=== PATIENT | female | born 1985 | race Two or more races ===

== ENCOUNTER 2017-04-08 00:07 | Inpatient (IN) | payer MEDICAID ==
[2017-04-08 00:46] LABS: APPEARANCE,URINE CLOUDY; BILIRUBIN,URINE NEGATIVE (NEGATIVE); COLOR,URINE YELLOW; GLUCOSE, URINE NEGATIVE (NEGATIVE); KETONES,URINE NEGATIVE (NEGATIVE); LEUKOCYTE ESTERASE,URINE LARGE (NEGATIVE); NITRITE,URINE NEGATIVE (NEGATIVE); PROTEIN,URINE 30 mg/dL (NEGATIVE); URINE SPECIFIC GRAVITY 1.008; UROBILINOGEN,URINE NEGATIVE mg/dL (<2.0)
[2017-04-08 01:02] LABS: URINE AMPHETAMINES SCREEN NEGATIVE; URINE BARBITURATES SCREEN NEGATIVE; URINE BENZODIAZEPINES SCREEN NEGATIVE; URINE COCAINE SCREEN NEGATIVE; URINE MARIJUANA (THC) SCREEN NEGATIVE; URINE METHADONE SCREEN NEGATIVE; URINE PHENCYCLIDINE SCREEN NEGATIVE
[2017-04-08 01:28] LABS: ABSOLUTE BASOPHILS # (AUTO) 0.1 10^3/uL (0.0-0.2); ABSOLUTE EOSINOPHILS # (AUTO) 0.1 10^3/uL (0.0-0.6); ABSOLUTE LYMPHOCYTES (AUTO) 2.5 10^3/uL (0.5-4.7); ABSOLUTE MONOCYTES (AUTO) 1.3 10^3/uL (0.1-1.4); ABSOLUTE NEUT (AUTO) 10.9 10^3/uL (1.7-8.2); BASOPHILS % (AUTO) 0.8 % (0-2); EOSINOPHILS % (AUTO) 0.8 % (0-6); HEMATOCRIT 35.1 % (36.0-47.0); HEMOGLOBIN 11.6 g/dL (12.0-15.5); LYMPHOCYTES % (AUTO) 16.6 % (13-45); MEAN CORPUSCULAR HEMOGLOBIN 28.5 pg (27.0-33.4); MEAN CORPUSCULAR HGB CONC 32.9 g/dL (32.0-36.0); MEAN CORPUSCULAR VOLUME 87 fl (80-97); MONOCYTES % (AUTO) 8.5 % (3-13); PLATELET COUNT 331 10^3/uL (150-450); RED BLOOD COUNT 4.06 10^6/uL (3.72-5.28); RED CELL DISTRIBUTION WIDTH 13.5 % (11.5-14.0); SEGMENTED NEUTROPHILS % (AUTO) 73.3 % (42-78); TOTAL CELLS COUNTED % (AUTO) 100 %; WHITE BLOOD COUNT 14.9 10^3/uL (4.0-10.5)
[2017-04-08] MEDS ORDERED: CEFAZOLIN 2 GM/D5W RTU 0 GM/0 ML RTUPB IV ONE (01:50)
[2017-04-08] MEDS ORDERED: CITRIC ACID/SODIUM CITRATE ORAL SOLN 15 ML UDCUP ONE (01:50)
[2017-04-08] MEDS ORDERED: OXYTOCIN/NORMAL SALINE 20 UNIT/1,000 ML RTUINJ ONE ×2 (02:17→06:53)
[2017-04-08] MEDS ORDERED: LIDOCAINE 1% INJ-PF (10 MG/ML) 30 ML SDV ONE (02:17)
[2017-04-08] MEDS ORDERED: MISOPROSTOL 0.2 MG TABLET ONE (02:17)
[2017-04-08] MEDS ORDERED: EPHEDRINE SULFATE INJ 50 MG/1 ML AMPULE ONE (02:17)
[2017-04-08] MEDS ORDERED: BUPIVACAINE HCL 0.25 % INJ/PF (2.5 MG/1 ML) 30 ML VIAL ONE (02:18)
[2017-04-08] MEDS ORDERED: FENTANYL/BUPIVACAINE/NS/PF 200 MCG/100 ML RTUINJ EPI ONE (02:18)
[2017-04-08 02:41] LABS: CHLAM PCR NOT DETECTED (NOT DETECT); GON PCR NOT DETECTED (NOT DETECT)
[2017-04-08 03:00] LABS: RUBELLA INTERPRETATION POSITIVE
[2017-04-08] MEDS ORDERED: RINGERS SOLUTION,LACTATED 300 ML IV ONE (03:40)
[2017-04-08] MEDS ORDERED: PENICILLIN G POTASSIUM 5,000,000 UNIT in DEXTROSE 5%-WATER 100 ML IV ONE (03:42)
[2017-04-08] MEDS ORDERED: PENICILLIN G-K 5 MILLION UNIT VIAL IV PRN (03:49)
[2017-04-08] MEDS: RINGERS SOLUTION,LACTATED 1,000 ML IV PRN ×3 (03:55→10:42)
--- NOTE | 2017-04-08 04:47 | RADIOLOGY REPORT (SQ) ---
EXAM DESCRIPTION: U/S OB LIMITED CLINICAL HISTORY: 32 years Female, Labor and delivery for presentation. Estimated delivery date of 04/17/2017 by last menstrual period COMPARISON: None. TECHNIQUE: Limited transabdominal third trimester obstetrical ultrasound to evaluate for position. FINDINGS: heart rate of 143 bpm. position is vertex. No other measurements or imaging provided of the fetus. IMPRESSION: Single live intrauterine with heart rate of 143 bpm. Vertex presentation.
[2017-04-08] MEDS ORDERED: PENICILLIN G-K 5 MILLION UNIT VIAL ONE ×2 (05:42→09:58)
[2017-04-08] MEDS ORDERED: PENICILLIN G POTASSIUM 2,500,000 UNIT in DEXTROSE 5%-WATER 50 ML IV SCH (07:42)
[2017-04-08] MEDS ORDERED: LIDOCAINE 2% INJ-PF (20 MG/ML) 10 ML AMPUL ONE (08:20)
[2017-04-08] MEDS ORDERED: MORPHINE SULFATE 10 MG/ML INJ ONE (10:34)
[2017-04-08] MEDS: OXYTOCIN/NORMAL SALINE 20 UNIT/1,000 ML RTUINJ IV PRN ×3 (10:40→10:44)
[2017-04-08] MEDS: PENICILLIN G-K 5 MILLION UNIT VIAL IV SCH ×2 (10:40→13:01)
[2017-04-08] MEDS ORDERED: MAGNESIUM HYDROXIDE SUSP 30 ML UDCUP PO PRN (10:59)
[2017-04-08] MEDS ORDERED: PROMETHAZINE HCL INJ 25 MG/1 ML VIAL IV PRN (10:59)
[2017-04-08] MEDS ORDERED: PSEUDOEPHEDRINE HCL 30 MG TABLET PO PRN (10:59)
[2017-04-08] MEDS ORDERED: ACETAMINOPHEN WITH CODEINE #3 TABLET PO PRN (10:59)
[2017-04-08] MEDS ORDERED: NA PHOS,M-B/NA PHOS,DI-BA (ADULT) 133 ML ENEMA PR PRN (10:59)
[2017-04-08] MEDS ORDERED: MEASLES,MUMPS&RUBELLA VACC/PF 0.5 ML VIAL SUBCUT PRN (10:59)
[2017-04-08] MEDS ORDERED: DIPHENHYDRAMINE HCL 25 MG CAPSULE PO PRN (10:59)
[2017-04-08] MEDS ORDERED: GLYCERIN/WITCH HAZEL LEAF 1 EACH MED..PAD TP PRN (10:59)
[2017-04-08] MEDS ORDERED: PROMETHAZINE HCL 25 MG TABLET PO PRN (10:59)
[2017-04-08] MEDS ORDERED: PROMETHAZINE HCL 25 MG SUPP.RECT PR PRN (10:59)
[2017-04-08] MEDS ORDERED: DIBUCAINE 1% OINTMENT 28 GM TP PRN (10:59)
[2017-04-08] MEDS ORDERED: ACETAMINOPHEN 650 MG SUPP.RECT PR PRN (10:59)
[2017-04-08] MEDS ORDERED: OXYTOCIN/NORMAL SALINE 20 UNIT/1,000 ML RTUINJ IV PRN (10:59)
[2017-04-08] MEDS ORDERED: BENZOCAINE/MENTHOL AEROSOL SPRAY 56 ML TOP PRN (10:59)
[2017-04-08] MEDS ORDERED: DIPH/PERTUSS(ACELL)/TETANUS VAC/PF 0.5 ML SYR (>=10YO) IM PRN (10:59)
--- NOTE | 2017-04-08 11:30 | Warning Signs in Babies ---
VOD Warning Signs Datetime Report Generated by [facility]: 04/08/2017 11:29 VOD#608 -Warning Signs in Babies: Needs to be viewed. (04/08/2017 10:54:PATIENCE Mo)
--- NOTE | 2017-04-08 12:03 | Delivery Summary ---
Del Sum A-C Datetime Report Generated by CPN: 04/08/2017 12:02 DELIVERY PERSONNEL DELIVERY PERSONNEL: [id number] Delivery Doctor:: Lily Ovalle CNM Labor and Delivery Nurse:: PATIENCE Mo Labor and Delivery Nurse:: Jessie Mukherjee RNC Nursery Nurse:: ROHAN Olea/FOOD AND BEVERAGE ORDER CLERK: Yun Woodson, COMMERCIAL OR INSTITUTIONAL CLEANER MATERNAL INFORMATION Delivery Anesthesia: Epidural Medications After Delivery: Pitocin Bolus-Please Comment Estimated Blood Loss (ml): 200 Maternal Complications: None Provider Comments: Pt. progressed to c/c/+2 with urge to push and this provider called into room. Pt. began pushing and with much coaching continued to push during contractions. Poor maternal effort during contractions and pt. stopped pushing with delivery of head, legs on mc hairston position and cork screw attempted for delivery of the shoulders. Pt. began pushing again and shoulders delivered without difficulty.Baby placed on maternal abdomen (Nursery personnel in room for delivery and eval). Vigorous respiratory effort and cry with tactile stimulation. Cord allowed to stop pulsating then clamped x2 and cut by FOB (3vc noted and cord blood obtained). Placenta delivered spontaneously intact, lacerations as stated and hemostatic on repair. Mother and baby remain skin to skin and bonding at this time. LABOR SUMMARY EDC: 04/17/2017 00:00 No. Babies in Womb: 1 Attempted: No Labor Anesthesia: Epidural LABOR INFORMATION Reason for Induction: Not Applicable Onset of Labor: 04/08/2017 00:46 Complete Dilatation: 04/08/2017 10:00 Oxytocin: Augmentation Group B Beta Strep: positive Antibiotics # of Doses: 3 Antibiotics Time of Last Dose: 0213/0602/1000 Name of Antibiotic Given: PCN Steroids Given: None Reason Steroids Not Administered: Not Applicable MEMBRANES Membranes Rupture Method: Spontaneous Rupture of Membranes: 04/08/2017 05:56 Length of Rupture (hr): 4.50 Amniotic Fluid Color: Clear Amniotic Fluid Amount: Moderate STAGES OF LABOR Stage 1 hr: 9 Stage 1 min: 14 Stage 2 hr: 0 Stage 2 min: 26 Stage 3 hr: 0 Stage 3 min: 6 Total Time in Labor hr: 9 Total Time in Labor min: 46 VAGINAL DELIVERY Episiotomy: None Laceration #1: Perineal; Periurethral Laceration Extension #1: First Degree Other Laceration: right labial periurethral tear/midline perineal lac Laceration Repair: Yes Laceration Repair Note: right labial and periurethral tear repaired with 3-0 chromic on an SH in the usual fashion-hemostatic. Superficial MLL repaired with 2-[address] also approximated and hemostatic Sponge Count Correct: N/A Sharps Count Correct: N/A CSECTION DELIVERY Primary Indication: N/A Secondary Indication: N/A CSection Incidence: N/A Labor: N/A Elective: N/A CSection Incision: N/A BABY A INFORMATION Infant Delivery Date/Time: 04/08/2017 10:26 Method of Delivery: Vaginal Born in Route : No : N/A Forceps: N/A Vacuum Extraction: N/A Shoulder Dystocia : Yes SHOULDER DYSTOCIA BABY A Delivery of Head: 04/08/2017 10:26 Time Head to Delivery : 0.0 1st Intervention to Resolve: McRobert's Maneuver 2nd Intervention to Resolve: Brito's Meneuver Verify NO Fundal Pressure: No Fundal Pressure Applied Arm Under Symphisis at Del: Right Shoulder Dystocia Comments: 25 seconds head to body PRESENTATION/POSITION BABY A Presentation: Cephalic Cephalic Presentation: Vertex Vertex Position: Left Occipital Anterior Breech Presentation: N/A PLACENTA INFORMATION BABY A Placenta Delivery Time : 04/08/2017 10:32 Placenta Method of Delivery: Spontaneous Placenta Status: Delivered SCORES BABY A Heart Rate 1 min: >100 bpm Resp Effort 1 min: Good Cry Reflex Irritability 1 min: Cough or Sneeze or Pulls Away Muscle Tone 1 min: Active Motion Color 1 min: Blue/Pale Resuscitation Effort 1 min: Tactile Stimulation SCORE 1 MIN: 8 Heart Rate 5 min: >100 bpm Resp Effort 5 min: Good Cry Reflex Irritability 5 min: Cough or Sneeze or Pulls Away Muscle Tone 5 min: Active Motion Color 5 min: Body Gardiner, Extremities Blue Resuscitation Effort 5 min: Tactile Stimulation SCORE 5 MIN: 9 INFANT INFORMATION BABY A Gestational Age at Delivery: 38.5 Gestational Status: Early Term- 37- 38.6 Weeks Outcome : Liveborn Infant Condition : Stable Sex: Female IDENTIFICATION BABY A Infant Verification Date/Time: 04/08/2017 11:30 ID Band Number: [id number] Mother's Name Verified: Yes Infant RN Verifying Infant: K Ole RNC/D [place] RNC WEIGHT/LENGTH BABY A Infant Birthweight (gm): 3560 Weight (lb): 7 Infant Weight (oz): 14 Infant Length (in): 20.75 Infant Length (cm): 52.71 CORD INFORMATION BABY A No. Cord Vessels: 3 Nuchal Cord : N/A Cord Blood Taken: Yes-For Eval (Mom's Blood Type - or O+) Suction: None ASSESSMENT BABY A Complications: None Physical Findings at Delivery: Caput [place]aneum Infant Respirations: Appears Normal Skin to Skin: Yes Operating Room Surgical Technician/ALS Called : Yes Infant Care By: Leeroy Hayes RN Transferred To: Remains with Mother BABY B INFORMATION : N/A SIGNATURES Assignment: Francia Dc MD Signature: with User ID: [email or web address] : with User ID: [email or web address] : I was personally available for consultation and serving as supervising physician for the P.
--- NOTE | 2017-04-08 12:18 | Admission Physical ---
Datetime Report Generated by CPN: 04/08/2017 12:17 CURRENT ADMISSION Chief Complaint: Uterine Contractions Indication for Induction: Term, Intrauterine ; Active Labor Admit Plan: Admit to Unit ALLERGIES Medication Allergies: No Medication Allergies: No Known Allergies (04/08/2017) Medication Allergies: No Known Allergies (09/06/2015) Latex: No Latex Allergies Food Allergies: n/a Environmental Allergies: n/a OBSTETRICAL HISTORY EDC: 04/17/2017 00:00 : 2 Para: 1 Term: 0 : 1 SAB: 0 IAB: 0 Ectopic: 0 Livin Cesareans: 0 VBACs: 0 Multiple Births: 0 Gestational Diabetes: No Rh Sensitization: No Incompetent Cervix: Yes LORI: No Infertility: No ART Treatment: No Uterine Anomaly: No IUGR: No Hx Previous C/S: No Macrosomia: No Hx Loss/Stillborn: Yes PIH: No Hx : No Placenta Previa/Abruption: No Depression/PP Depression: No PTL/PROM: Yes Post Hemorrhage: No Current Procedures: Ultrasound; [place] Obstetrical History Comments: G1- 2015 22week demise G2- current, 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 Surgery: No Heart Disease: No Hosp/Surgery: Yes Autoimmune Disorder: No Anesthetic Complications: No Kidney Disease: No Abnormal Pap Smear: No Neuro/Epilepsy: No Psychiatric Disorders: No Other Medical Diseases: No Hepatitis/Liver Disease: No Significant Family History: No Varicosities/Phlebitis: No Trauma/Violence : No Thyroid Dysfunction: No Medical History Comments: Appendectomy at age 19 INFECTIOUS HISTORY Gonorrhea: No Genital Herpes: No Chlamydia: No Tuberculosis: No Syphilis: No Hepatitis: No HIV/AIDS Exposure: No Rash or Viral Illness: No HPV: No PHYSICAL EXAM General: Normal HEENT: Normal Neurologic: Normal Thyroid: Normal Heart: Normal Lungs: Normal Breast: Normal Back: Normal Abdomen: Normal Genitourinary Exam: Normal Extremities: Normal DTRs: Normal Pelvic Type: Adequate Vital Signs: Reviewed; Within Normal Limits VAGINAL EXAM Dilatation: 7 Effacement: 80 Station: -2 FETUS A EGA: 38.5 Admit Comment: 32 yo presented at 38 weeks and 5 days complaining of contractions. Monitored with cervical change. care in [place], [facility] per patient. SROM at 0600, 04/08/17. Will admit, wll require augmentation, PCN for unknown GBS status. Expect normal spontaneous vaginal delivery. PLANS FOR LABOR AND DELIVERY Labor and Delivery: None Pain Management: Epidural Feeding Preference: Formula Benefit of Breast Feed Discussed: Yes Circumcision: N/A INFORMED CONSENT Signature: with User ID: [email or web address]
[2017-04-08] MEDS: IBUPROFEN 800 MG TABLET PO SCH ×2 (13:09→21:02)
[2017-04-08] MEDS ORDERED: INFLUENZA ADLT QUAD (36MOS+) 2017-18 VAC 0.5 ML SYR IM PRN (14:48)
[2017-04-08] MEDS: FERROUS SULFATE 325 MG TABLET PO SCH (17:31)
[2017-04-08] MEDS: DOCUSATE SODIUM 100 MG CAPSULE PO SCH (17:31)
[2017-04-08] MEDS: FAMOTIDINE 20 MG TABLET PO SCH (21:03)
[2017-04-08] MEDS: ACETAMINOPHEN WITH CODEINE #3 TABLET PO PRN (23:32)
[2017-04-09] MEDS: ACETAMINOPHEN WITH CODEINE #3 TABLET PO PRN ×3 (03:42→18:34)
[2017-04-09 05:39] LABS: HEPATITIS C VIRUS AB <0.1 s/co ratio (0.0-0.9)
[2017-04-09] MEDS: IBUPROFEN 800 MG TABLET PO SCH ×3 (05:44→21:57)
[2017-04-09 07:16] LABS: HEPATITS B SURFACE ANTIGEN Negative (Negative)
[2017-04-09 07:54] LABS: HEMATOCRIT 30.5 % (36.0-47.0); HEMOGLOBIN 10.1 g/dL (12.0-15.5); MEAN CORPUSCULAR HEMOGLOBIN 29.1 pg (27.0-33.4); MEAN CORPUSCULAR HGB CONC 33.2 g/dL (32.0-36.0); MEAN CORPUSCULAR VOLUME 88 fl (80-97); PLATELET COUNT 304 10^3/uL (150-450); RED BLOOD COUNT 3.48 10^6/uL (3.72-5.28); RED CELL DISTRIBUTION WIDTH 13.3 % (11.5-14.0); WHITE BLOOD COUNT 17.2 10^3/uL (4.0-10.5)
[2017-04-09] MEDS: DOCUSATE SODIUM 100 MG CAPSULE PO SCH ×2 (09:16→17:56)
[2017-04-09] MEDS: PRENATAL VITAMIN W DHA CAPSULE PO SCH (09:16)
[2017-04-09] MEDS: FAMOTIDINE 20 MG TABLET PO SCH ×2 (09:17→21:56)
[2017-04-09] MEDS: SENNOSIDES/DOCUSATE 8.6-50 MG 1 EACH TABLET PO SCH (09:17)
[2017-04-09] MEDS: FERROUS SULFATE 325 MG TABLET PO SCH ×2 (09:17→17:55)
--- NOTE | 2017-04-09 09:34 | PDOC PROGRESS REPORT ---
Subjective-OB Subjective: Post Delivery Day: 32 year old. Denies any needs at this time Doing well, no c/o, family at BS, bottle feeding, encouraged to wear bra Physical Exam (OB) Vital Signs: Temp Pulse Resp BP Pulse Ox 97.9 F 79 16 123/74 100 04/09/17 07:47 04/09/17 07:47 04/09/17 07:47 04/09/17 07:47 04/09/17 07:47 Intake & Output 04/08/17 04/09/17 04/10/17 06:59 06:59 06:59 Weight 86 kg - Lochia Lochia Amount: Scant < 10 ml Lochia Color: Rubra/Red - Abdomen Description: Soft, Round Hernia Present: No Fundal Description: Firm, Midline Fundal Height: u/u - u/2 Objective-Diagnostic Laboratory: 04/09/17 07:02 04/09/17 07:02 WBC 17.2 H RBC 3.48 L Hgb 10.1 L Hct 30.5 L MCV 88 MCH 29.1 MCHC 33.2 RDW 13.3 Plt Count 304 Assessment and Plan(PN) - Assessment and Plan (1) Smoker Is this a current diagnosis for this admission?: Yes (2) GBS (group B Streptococcus carrier), +RV culture, currently Is this a current diagnosis for this admission?: Yes (3) Delivery normal Is this a current diagnosis for this admission?: Yes - Time Spent with Patient Time with patient: Less than 15 minutes Medications reviewed and adjusted accordingly: Yes - Disposition Anticipated Discharge: Home Within: within 24 hours
[2017-04-10] MEDS: ACETAMINOPHEN WITH CODEINE #3 TABLET PO PRN (03:58)
[2017-04-10] MEDS: IBUPROFEN 800 MG TABLET PO SCH (05:21)
[2017-04-10 08:10] VITALS: BP 137/83
[2017-04-10] MEDS: FAMOTIDINE 20 MG TABLET PO SCH (09:40)
[2017-04-10] MEDS: DOCUSATE SODIUM 100 MG CAPSULE PO SCH (09:40)
[2017-04-10] MEDS: FERROUS SULFATE 325 MG TABLET PO SCH (09:40)
[2017-04-10] MEDS: SENNOSIDES/DOCUSATE 8.6-50 MG 1 EACH TABLET PO SCH (09:40)
[2017-04-10] MEDS: PRENATAL VITAMIN W DHA CAPSULE PO SCH (09:40)
--- NOTE | 2017-04-10 10:06 | PDOC DISCHARGE SUMMARY ---
Final Diagnosis Discharge Date: 04/10/17 - Final Diagnosis (1) Delivery normal Is this a current diagnosis for this admission?: Yes Discharge Data - Discharge Medication Prescriptions: Ibuprofen [Motrin 800 mg Tablet] 800 mg PO Q8 #30 tablet Home Medications: No122/Iron/Folic Acid [ Multi Tablet] 1 tab PO DAILY 04/08/17 Acetaminophen with Codeine [Tylenol #3 Tablet] 2 each PO Q4HP PRN #30 tablet Ibuprofen [Motrin 800 mg Tablet] 800 mg PO Q8 #30 tablet 04/10/17 Vit/Dha [ Multi + Dha Capsule] 1 cap PO DAILY capsule Gestational Age: term Reason(s) for Admission: Onset of Labor Admission Note: Pt was admitted in active labor. Procedures: None Intrapartum Procedure(s): Spontaneous Vaginal Delivery Complication(s): Laceration-Labial - Data Baby 1 Female at 1 minute: 8 at 5 minutes: 9 Weight: 3.203 kg Home with Mother: Yes Complications: No - Diagnosis Test Laboratory: Temp Pulse Resp BP Pulse Ox 97.8 F 82 18 137/83 H 98 04/10/17 07:57 04/10/17 07:57 04/10/17 07:57 04/10/17 07:57 04/10/17 07:57 04/08/17 04/08/17 04/09/17 00:21 01:09 07:02 RBC 4.06 3.48 L Hgb 11.6 L 10.1 L Hct 35.1 L 30.5 L Urine Opiates Screen NEGATIVE - Discharge information/Instructions Discharge Activity: Balance Activity w/Rest, Pelvic Rest Discharge Diet: As Tolerated, Regular Disposition: HOME, SELF-CARE Follow up with: [facility] in: 4
== END 2017-04-10 11:48 | disposition home or self-care (01) | DRG 775 ==
LOC: LC 00:07 → LR 02:05 → 2S 12:15
PROVIDERS: ADMIT Obstetrics & Gynecology; ATTEND Obstetrics & Gynecology
PROC: 10E0XZZ Delivery of Products of Conception, External Approach (ICD-10-PCS; principal; 2017-04-08)
PROC: 0UQMXZZ Repair Vulva, External Approach (ICD-10-PCS; 2017-04-08)
PROC: 0HQ9XZZ Repair Perineum Skin, External Approach (ICD-10-PCS; 2017-04-08)
PROC: 4A1HXCZ Monitoring of Products of Conception, Cardiac Rate, External Approach (ICD-10-PCS; 2017-04-08)
DX: O99.824 Streptococcus B carrier state complicating childbirth (principal); O70.0 First degree perineal laceration during delivery; O71.82 Other specified trauma to perineum and vulva; O99.334 Smoking (tobacco) complicating childbirth; F17.210 Nicotine dependence, cigarettes, uncomplicated; Z79.899 Other long term (current) drug therapy; Z3A.38 38 weeks gestation of pregnancy; Z37.0 Single live birth
CPT/HCPCS: 36415; 76815; 80307; 81005; 85025; 85027; 86592; 86701; 86762; 86803; 86804; 86850; 86900; 86901; 87340; 87491; 87591; 88307; 90686; 90715; J0690; J2270; J2540; J2590; J3490

== ENCOUNTER 2018-03-12 23:06 | Emergency (ER) | payer SELFPAY ==
--- NOTE | 2018-03-13 00:01 | ER Document Report ---
ED Psych Disorder / Suicide - General Chief Complaint: Psych Problem Stated Complaint: TOOK 9 TYLENOL 500MG Time Seen by Provider: 03/12/18 23:49 Mode of Arrival: Ambulatory Information source: Patient TRAVEL OUTSIDE OF THE [place] IN LAST 30 DAYS: No - HPI Patient complains to provider of: Suicidal attempt - 33-year-old female without significant past medical history that presents for evaluation of an episode of suicide attempt. She took 9 500 mg Tylenol tablets at 10:00 tonight and attempt to harm herself because she had gotten into a disturbance with her mother. She noted that immediately after taking the medication that she regretted that she did try to induce vomiting at the time and vomited up 3 of the Tylenol tablets. She denies any history of depression in the past previous known mental health problems, she does not take any medications in the REM prescribe anything in the past were diagnosed with any other issues. - Related Data Allergies/Adverse Reactions: No Known Allergies Allergy (Verified 04/08/17 03:38) Past Medical History - General Information source: Patient - Social History Smoking Status: Never Smoker Family History: DM - Past Medical History Cardiac Medical History: Reports: Hx Atrial Fibrillation Renal/ Medical History: Reports: Hx Kidney Stones Psychiatric Medical History: Denies: Hx Depression Past Surgical History: Reports: Hx Appendectomy - Immunizations Immunizations up to date: Yes Hx Diphtheria, Pertussis, Tetanus Vaccination: Yes - unk Review of Systems - Review of Systems -: Yes All other systems reviewed and negative Physical Exam - Vital signs Vitals: Temp Pulse Resp BP Pulse Ox 98 F 70 16 147/95 H 98 03/12/18 23:31 03/12/18 23:31 03/12/18 23:31 03/12/18 23:31 03/12/18 23:31 - General General appearance: Appears well, Alert - HEENT Head: Normocephalic, Atraumatic Eyes: Normal Pupils: PERRL - Respiratory Respiratory status: No respiratory distress Chest status: Nontender Breath sounds: Normal Chest palpation: Normal - Cardiovascular Rhythm: Regular Heart sounds: Normal auscultation Murmur: No - Abdominal Inspection: Normal Distension: No distension Bowel sounds: Normal Tenderness: Nontender Organomegaly: No organomegaly - Back Back: Normal, Nontender - Extremities General upper extremity: Normal inspection, Nontender, Normal color, Normal ROM , Normal temperature General lower extremity: Normal inspection, Nontender, Normal color, Normal ROM , Normal temperature, Normal weight bearing. No: Rosas's sign - Neurological Neuro grossly intact: Yes Cognition: Normal Orientation: AAOx4 Celina Coma Scale Eye Opening: Spontaneous Lyubov Coma Scale Verbal: Oriented Lyubov Coma Scale Motor: Obeys Commands Lyubov Coma Scale Total: 15 Speech: Normal Motor strength normal: LUE, RUE, LLE, RLE Sensory: Normal - Psychological Associated symptoms: Other - Tearful Course - Re-evaluation Re-evalutation: 03/13/18 01:57 33-year-old female that presents after a suicide attempt. She did take Tylenol then was able to vomit up 3 of the 9 tablets. Denies any history of suicidal attempts in the past has been feeling like a bird in the people however and is concerned about suicidal thoughts. We will plan for psychiatric screening laboratory evaluation including a 4-hour Tylenol level. We will plan for this patient undergo evaluation in the morning by her mental health team with appropriate disposition determination with safe follow-up and an appropriate plan. - Vital Signs Vital signs: Temp Pulse Resp BP Pulse Ox 98 F 70 16 147/95 H 98 03/12/18 23:31 03/12/18 23:31 03/12/18 23:31 03/12/18 23:31 03/12/18 23:31 - Laboratory Result Diagrams: 03/13/18 00:15 03/13/18 00:15 Laboratory results interpreted by me: 03/13/18 03/13/18 03/13/18 00:15 00:15 00:15 WBC 11.0 H Calcium 10.6 H Urine Protein 30 H Discharge - Discharge Clinical Impression: Feeling of sadness Suicide attempt by acetaminophen overdose Qualifiers: Encounter type: initial encounter Qualified Code(s): T39.1X2A - Poisoning by 4- Aminophenol derivatives, intentional self-harm, initial encounter Referrals: CHRIS MALHOTRA MD [JOHN REGAN] - Follow up as needed
[2018-03-13 00:33] LABS: ABSOLUTE BASOPHILS # (AUTO) 0.1 10^3/uL (0.0-0.2); ABSOLUTE EOSINOPHILS # (AUTO) 0.3 10^3/uL (0.0-0.6); ABSOLUTE LYMPHOCYTES (AUTO) 4.2 10^3/uL (0.5-4.7); ABSOLUTE MONOCYTES (AUTO) 0.8 10^3/uL (0.1-1.4); ABSOLUTE NEUT (AUTO) 5.4 10^3/uL (1.7-8.2); BASOPHILS % (AUTO) 0.9 % (0-2); EOSINOPHILS % (AUTO) 3.1 % (0-6); HEMATOCRIT 41.9 % (36.0-47.0); HEMOGLOBIN 14.5 g/dL (12.0-15.5); LYMPHOCYTES % (AUTO) 38.6 % (13-45); MEAN CORPUSCULAR HGB CONC 34.6 g/dL (32.0-36.0); MEAN CORPUSCULAR VOLUME 90 fl (80-97); MONOCYTES % (AUTO) 7.8 % (3-13); PLATELET COUNT 364 10^3/uL (150-450); RED BLOOD COUNT 4.68 10^6/uL (3.72-5.28); RED CELL DISTRIBUTION WIDTH 13.1 % (11.5-14.0); SEGMENTED NEUTROPHILS % (AUTO) 49.6 % (42-78); TOTAL CELLS COUNTED % (AUTO) 100 %
[2018-03-13 00:37] LABS: APPEARANCE,URINE CLOUDY; BILIRUBIN,URINE NEGATIVE (NEGATIVE); GLUCOSE, URINE NEGATIVE (NEGATIVE); KETONES,URINE NEGATIVE (NEGATIVE); LEUKOCYTE ESTERASE,URINE NEGATIVE (NEGATIVE); NITRITE,URINE NEGATIVE (NEGATIVE); PROTEIN,URINE 30 mg/dL (NEGATIVE); URINE SPECIFIC GRAVITY 1.034; UROBILINOGEN,URINE NEGATIVE mg/dL (<2.0)
[2018-03-13 00:38] LABS: COLOR,URINE YELLOW
[2018-03-13 00:49] LABS: ALANINE AMINOTRANSFERASE 30 U/L (9-52); ALBUMIN 4.3 g/dL (3.5-5.0); ALKALINE PHOSPHATASE 110 U/L (38-126); ANION GAP 15 (5-19); ASPARTATE AMINO TRANSFERASE 20 U/L (14-36); BILIRUBIN,DIRECT 0.1 mg/dL (0.0-0.4); BILIRUBIN,TOTAL 0.3 mg/dL (0.2-1.3); BLOOD UREA NITROGEN 14 mg/dL (7-20); CALCIUM 10.6 mg/dL (8.4-10.2); CARBON DIOXIDE 24 mmol/L (22-30); CHLORIDE 106 mmol/L (98-107); GLUCOSE 105 mg/dL (75-110); POTASSIUM 3.9 mmol/L (3.6-5.0); SALICYLATE 3.7 mg/dL (2.0-20.0); SODIUM 144.6 mmol/L (137-145); TOTAL PROTEIN 7.6 g/dL (6.3-8.2); URINE AMPHETAMINES SCREEN NEGATIVE; URINE BARBITURATES SCREEN NEGATIVE; URINE BENZODIAZEPINES SCREEN NEGATIVE; URINE COCAINE SCREEN NEGATIVE; URINE MARIJUANA (THC) SCREEN UNCONFIRMED POSITIVE; URINE METHADONE SCREEN NEGATIVE; URINE PHENCYCLIDINE SCREEN NEGATIVE
[2018-03-13 00:50] LABS: ALCOHOL < 10 mg/dL (NONE DETECTED)
--- NOTE | 2018-03-13 07:52 | EKG REPORT ---
SEVERITY:- NORMAL ECG - SINUS RHYTHM SINUS ARRHYTHMIA : Confirmed by: Rigo Keating MD 13-Mar-2018 07:51:39
[2018-03-13 12:45] LABS: ACETAMINOPHEN < 10 ug/mL (10-30); ALANINE AMINOTRANSFERASE 25 U/L (9-52); ALBUMIN 4.3 g/dL (3.5-5.0); ALKALINE PHOSPHATASE 99 U/L (38-126); ANION GAP 13 (5-19); ASPARTATE AMINO TRANSFERASE 19 U/L (14-36); BILIRUBIN,DIRECT 0.2 mg/dL (0.0-0.4); BILIRUBIN,TOTAL 0.5 mg/dL (0.2-1.3); BLOOD UREA NITROGEN 16 mg/dL (7-20); CARBON DIOXIDE 25 mmol/L (22-30); CHLORIDE 107 mmol/L (98-107); GLUCOSE 95 mg/dL (75-110); POTASSIUM 4.1 mmol/L (3.6-5.0); SODIUM 144.9 mmol/L (137-145); TOTAL PROTEIN 7.3 g/dL (6.3-8.2)
--- NOTE | 2018-03-13 12:51 | ER Document Report ---
Doctor's Note Notes: 03/13/18 12:50 Patient hemodynamically stable. She is a 33-year-old woman that presented yesterday after an overdose with Tylenol. The Tylenol level at 2 hours after the ingestion was 15. She has been asymptomatic here. Repeat CMP shows no liver inflammation. Repeat Tylenol level was undetectable. Patient is medically stable for psychiatric transfer. The plan includes transfer to a psychiatric facility.
--- NOTE | 2018-03-13 14:32 | PSYCHOLOGICAL NOTE ---
Psych Note - Psych Note Date seen by psych provider: 03/13/18 Time seen by psych provider: 07:40 Psych Note: Reason for Consult: Intentional overdose Consent Permissions: ,Vesta, at bedside per patient's request 33-year-old female without significant past medical history that presents for evaluation of an episode of suicide attempt. Patient disclosed that she came to [facility] ED because she "took too many pills." She denies ever having this happen before. She reports that in the past she has had thoughts that come and go of "if I was not around anymore but never thought about harming myself." She denies having a mental health diagnosis. She states that she "regretted it instantly" and told her father and . Patient was unable or unwilling to discuss her trigger stating it was "just everything" and reports that she did not want to talk about it. Patient clearly became overwhelmed and tearful when asked about a trigger. Patient is alert and orientated to person, place, time and circumstance. Mood is dysphoric with congruent affect. Patient endorses intentional overdose however reports that immediate remorse. Patient denies homicidal ideation. Delusions are absent behaviors congruent with an intact reality based presentation i.e. organized linear thought process. Thought content is guarded. Eye contact is fair. Conversational speech was soft-spoken however easily understood. Intellectual abilities appear to be within the average range. Attention and concentration are good. Insight, judgment, impulse control is fair. Medication recommendations per [facility]'s contracted psychiatrist Celexa 20mg daily Diagnosis 311 (F32.9) Unspecified Depressive disorder Impression/plan: Patient is recommended for IVC for overnight mental health observation. Patient confirms she intentionally overdosed but immediately regretted it. Patient took steps to ensure she would be alright (ie telling her and father and coming to [facility] ED to be checked out medically). Patient has continued stressors with her mother that will not change; however, patient was able to engage in problem-solving. Patient has never been on medications; medication have been provided. She will be re-evaluated tomorrow with probable discharge in the morning. Dr. Marie was consulted on the care and management of this patient; attending physician is in agreement with recommendations and disposition.
[2018-03-13] MEDS: CITALOPRAM HYDROBROMIDE 20 MG TABLET PO SCH (16:04)
[2018-03-14 06:07] VITALS: BP 125/66
--- NOTE | 2018-03-14 09:08 | PSYCHOLOGICAL NOTE ---
Psych Note - Psych Note Date seen by psych provider: 03/14/18 Time seen by psych provider: 07:45 Psych Note: Reason for Consult: Intentional overdose Consent Permissions: ,Vesta, at bedside per patient's request 33-year-old female without significant past medical history that presents for evaluation of an episode of suicide attempt. Conducted check in with patient Patient confirms plan is still for her to stay with her in-laws. Her spouse reports that both he and the patient work for his parents at the [employer] so it would be only a matter of on the end of the workday her going home with him instead of coming to her parents home. She identifies her mother as her stress is trigger however was unable to move out of the home because she assist in the care of her father. Patient's spouse confirms that he has volunteered to continue going over to the patient's parents home to assist in the care of the father. She confirms she will continue taking medication and seek therapeutic services. Mood is euthymic with congruent affect. Medication recommendations per [facility]'s contracted psychiatrist Celexa 20mg daily Diagnosis 311 (F32.9) Unspecified Depressive disorder Impression/plan: Patient is recommended for rescind of IVC and is cleared from acute psychiatric services. Patient confirms she intentionally overdosed but immediately regretted it. Patient took steps to ensure she would be alright ( ie telling her and father and coming to [facility] ED to be checked out medically). Patient has continued stressors with her mother that will not change ; however, patient was able to engage in problem-solving. Patient started medications and report no concerns. Patient and spouse continue to reports the plan is for the patient to stay with her [id number] while receiving therapeutic services and her spouse will assist with the care of the patient's father. Dr. Marie was consulted on the care and management of this patient; attending physician is in agreement with recommendations and disposition.
--- NOTE | 2018-03-14 10:01 | ER Document Report ---
Doctor's Note Notes: 03/14/18 09:59 Chart reviewed and patient interviewed. Patient is here for having taken an overdose of the small number of Tylenol. Patient is being seen by mental health. Vital signs are all normal. Lab studies show innocuous acetaminophen level of 15. Other labs essentially normal. Patient appears to be medically stable for transfer or discharge. Eva Mendieta MD
[2018-03-14] MEDS: CITALOPRAM HYDROBROMIDE 20 MG TABLET PO SCH (10:38)
== END 2018-03-14 11:15 | disposition home or self-care (01) ==
LOC: ER 23:06
DX: T39.1X2A Poisoning by 4-Aminophenol derivatives, intentional self-harm, initial encounter (principal); F32.9 Major depressive disorder, single episode, unspecified; Y92.009 Unspecified place in unspecified non-institutional (private) residence as the place of occurrence of the external cause
CPT/HCPCS: 36415; 80053; 80307; 81001; 84703; 85025; 93005; 93010; 99285

== ENCOUNTER 2018-12-02 22:04 | Inpatient (IN) | payer MEDICAID ==
[2018-12-02] MEDS ORDERED: PENICILLIN G POTASSIUM 5,000,000 UNIT in DEXTROSE 5%-WATER 100 ML IV ONE (22:37)
[2018-12-02] MEDS ORDERED: RINGERS SOLUTION,LACTATED 1,000 ML IV ONE (22:37)
[2018-12-02] MEDS ORDERED: MISOPROSTOL 0.2 MG TABLET ONE (22:40)
[2018-12-02] MEDS ORDERED: LIDOCAINE 1% INJ-PF (10 MG/ML) 30 ML SDV ONE (22:41)
[2018-12-02] MEDS ORDERED: OXYTOCIN/NORMAL SALINE 20 UNIT/1,000 ML RTUINJ ONE (22:41)
[2018-12-02] MEDS ORDERED: PENICILLIN G-K 5 MILLION UNIT VIAL ONE (22:41)
[2018-12-02 22:51] LABS: APPEARANCE,URINE SLIGHTLY-CLOUDY; BILIRUBIN,URINE NEGATIVE (NEGATIVE); COLOR,URINE YELLOW; GLUCOSE, URINE NEGATIVE (NEGATIVE); KETONES,URINE NEGATIVE (NEGATIVE); LEUKOCYTE ESTERASE,URINE SMALL (NEGATIVE); NITRITE,URINE NEGATIVE (NEGATIVE); PROTEIN,URINE NEGATIVE (NEGATIVE); URINE SPECIFIC GRAVITY 1.005; UROBILINOGEN,URINE NEGATIVE mg/dL (<2.0)
[2018-12-02 23:09] LABS: ABSOLUTE BASOPHILS # (AUTO) 0.1 10^3/uL (0.0-0.2); ABSOLUTE EOSINOPHILS # (AUTO) 0.2 10^3/uL (0.0-0.6); ABSOLUTE LYMPHOCYTES (AUTO) 2.8 10^3/uL (0.5-4.7); ABSOLUTE MONOCYTES (AUTO) 1.3 10^3/uL (0.1-1.4); BASOPHILS % (AUTO) 0.6 % (0-2); EOSINOPHILS % (AUTO) 1.8 % (0-6); HEMATOCRIT 33.6 % (36.0-47.0); HEMOGLOBIN 11.3 g/dL (12.0-15.5); LYMPHOCYTES % (AUTO) 24.7 % (13-45); MEAN CORPUSCULAR HEMOGLOBIN 28.8 pg (27.0-33.4); MEAN CORPUSCULAR HGB CONC 33.6 g/dL (32.0-36.0); MEAN CORPUSCULAR VOLUME 86 fl (80-97); MONOCYTES % (AUTO) 11.1 % (3-13); PLATELET COUNT 289 10^3/uL (150-450); RED BLOOD COUNT 3.92 10^6/uL (3.72-5.28); RED CELL DISTRIBUTION WIDTH 13.7 % (11.5-14.0); SEGMENTED NEUTROPHILS % (AUTO) 61.8 % (42-78); TOTAL CELLS COUNTED % (AUTO) 100 %; WHITE BLOOD COUNT 11.4 10^3/uL (4.0-10.5)
[2018-12-02 23:09] LABS: URINE AMPHETAMINES SCREEN NEGATIVE; URINE BARBITURATES SCREEN NEGATIVE; URINE BENZODIAZEPINES SCREEN NEGATIVE; URINE COCAINE SCREEN NEGATIVE; URINE MARIJUANA (THC) SCREEN NEGATIVE; URINE METHADONE SCREEN NEGATIVE; URINE PHENCYCLIDINE SCREEN NEGATIVE
[2018-12-02] MEDS ORDERED: ONDANSETRON HCL INJ/PF 4 MG/2 ML SDV ONE (23:10)
[2018-12-02] MEDS ORDERED: EPHEDRINE SULFATE INJ 50 MG/1 ML AMPULE ONE (23:16)
[2018-12-02] MEDS ORDERED: BUPIVACAINE HCL 0.25 % INJ/PF (2.5 MG/1 ML) 30 ML VIAL ONE (23:16)
[2018-12-02] MEDS ORDERED: FENTANYL/BUPIVACAINE/NS/PF 300 MCG/150 ML RTUINJ EPI ONE (23:16)
--- NOTE | 2018-12-03 00:17 | Admission Physical ---
Datetime Report Generated by CPN: 12/03/2018 00:17 CURRENT ADMISSION Chief Complaint: Uterine Contractions Indication for Induction: Not Applicable Admit Impression : Term, Intrauterine ; Active Labor; Intact Membranes Admit Plan: Admit to Unit; Initiate Labor Protocol ALLERGIES Medication Allergies: No Medication Allergies: No Known Allergies (04/08/2017) Latex: No Latex Allergies Food Allergies: None Environmental Allergies: None OBSTETRICAL HISTORY EDC: 12/12/2018 00:00 : 3 Para: 2 Term: 1 : 1 SAB: 0 IAB: 0 Ectopic: 0 Livin Cesareans: 0 VBACs: 0 Multiple Births: 0 Gestational Diabetes: No Rh Sensitization: No Incompetent Cervix: Yes LORI: No Infertility: No ART Treatment: No Uterine Anomaly: No IUGR: No Hx Previous C/S: No Macrosomia: No Hx Loss/Stillborn: No PIH: No Hx : No Placenta Previa/Abruption: No Depression/PP Depression: No PTL/PROM: No Post Hemorrhage: No Obstetrical History Comments: G1 - at 21 weeks (2015), IUFD, incompetent cervix G2 - at 38 weeks, cerclage (2016) G3 - Current , cerclage SEE RECORDS Alcohol: No Marijuana : No Cocaine: No Other Illicit Drugs: No Cigarettes: Current Everyday Smoker. 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: No Heart Disease: No Hosp/Surgery: No Autoimmune Disorder: No Anesthetic Complications: No Kidney Disease: No Abnormal Pap Smear: No Neuro/Epilepsy: No Psychiatric Disorders: No Other Medical Diseases: No Hepatitis/Liver Disease: No Significant Family History: No Varicosities/Phlebitis: No Trauma/Violence : No Thyroid Dysfunction: No INFECTIOUS HISTORY Gonorrhea: No Genital Herpes: Yes Chlamydia: No Tuberculosis: No Syphilis: No Hepatitis: No HIV/AIDS Exposure: No Rash or Viral Illness: No HPV: No PHYSICAL EXAM General: Normal HEENT: Normal Neurologic: Normal Thyroid: Deferred Heart: Normal Lungs: Normal Breast: Deferred Back: Normal Abdomen: Normal Genitourinary Exam: Normal Extremities: Normal DTRs: Normal Pelvic Type: Adequate Physical Exam Comments: pelvis proven to 7#14oz. No HSV lesions on exam. Vital Signs: Reviewed VAGINAL EXAM Dilatation: 4 Effacement: 90 Station: -2 Contraction Comments: Q 2-3 MEMBRANES Membranes: Intact FETUS A EGA: 38.4 Monitoring: External US FHR- Baseline: 135 Variability: Moderate 6-25bpm Accelerations: 15X15 Decelerations: None FHR Category: Category I Presentation: Vertex Admit Comment: 24yo at 38+4ega presents with ctx in active labor. c/b cerclage removed a couple of weeks ago. G1 was delivery at 22wks due to incompetent cervix at [facility]. G2 cerclage then term delivery at 38.5ega at [facility]. [facility] patient with each . O pos. Hep C not in records - ordered. She has a h/o genital HSV - no lesions on exam. She reports that she was put on valtrex but hasnt taken it in some time. last outbreak was 3months ago. 1 hr GTT was 122. GBS was done on 11/12 but results are not in records obtained from [facility]. Admit to Labor and delivery anticipate . PLANS FOR LABOR AND DELIVERY Labor and Delivery: None Pain Management: Epidural Feeding Preference: Both Benefit of Breast Feed Discussed: Yes Circumcision: N/A INFORMED CONSENT Informed Consent Obtained: Vaginal Delivery; Risks, Benefits and Alternatives Discussed Signature: with User ID: [email or web address]
[2018-12-03 01:17] LABS: CHLAM PCR NOT DETECTED (NOT DETECT)
[2018-12-03] MEDS ORDERED: BENZOCAINE/MENTHOL AEROSOL SPRAY 56 ML ONE (03:22)
--- NOTE | 2018-12-03 03:33 | Delivery Summary ---
Del Sum A-C Datetime Report Generated by CPN: 12/03/2018 03:32 DELIVERY PERSONNEL DELIVERY PERSONNEL: [id number] Delivery Doctor:: Francia Dc MD Anesthesiologist:: Michel Estrella MD Labor and Delivery Nurse:: Bridgette Pittman RNproduction trainer Nurse:: Ceci Alford RN Singer And Unloader/OVENS SUPERVISOR: Breana Green, ST MATERNAL INFORMATION Delivery Anesthesia: Epidural Medications After Delivery: Pitocin Bolus-Please Comment Estimated Blood Loss (ml): 50 Delivery QBL: 0 Delivery QBL Comment: 50 Maternal Complications: None Provider Comments: VMI delivered in VU presentation. No nuchal cord. Shoulders and body delivered without difficulty. cord doubly clamped and infant to maternal abdomen for NRP. Placenta delivered intact spontaneously. FF at U. No perineal lacerations. Mother and baby stable upon provider leaving the room. LABOR SUMMARY EDC: 12/12/2018 00:00 No. Babies in Womb: 1 Attempted: No Labor Anesthesia: Epidural LABOR INFORMATION Reason for Induction: Not Applicable Onset of Labor: 12/02/2018 21:30 Complete Dilatation: 12/03/2018 02:19 Oxytocin: N/A Group B Beta Strep: Negative Antibiotics # of Doses: 0 Steroids Given: None Reason Steroids Not Administered: Not Applicable MEMBRANES Membranes Rupture Method: Artificial Rupture of Membranes: 12/03/2018 02:02 Length of Rupture (hr): 0.35 Amniotic Fluid Color: Moderate Meconium Amniotic Fluid Amount: Small Amniotic Fluid Odor: Normal STAGES OF LABOR Stage 1 hr: 4 Stage 1 min: 49 Stage 2 hr: 0 Stage 2 min: 4 Stage 3 hr: 0 Stage 3 min: 12 Total Time in Labor hr: 5 Total Time in Labor min: 5 VAGINAL DELIVERY Episiotomy: None Laceration #1: None Laceration Extension #1: N/A Laceration Repair: Not Applicable Sponge Count Correct: Yes Sharps Count Correct: Yes CSECTION DELIVERY CSection Incision: N/A BABY A INFORMATION Delivery Date/Time: 12/03/2018 02:23 Method of Delivery: Vaginal Born in Route : No : N/A Forceps: N/A Vacuum Extraction: N/A Shoulder Dystocia : No PRESENTATION/POSITION BABY A Presentation: Cephalic Cephalic Presentation: Vertex Vertex Position: Left Occipital Anterior Breech Presentation: N/A PLACENTA INFORMATION BABY A Placenta Delivery Time : 12/03/2018 02:35 Placenta Method of Delivery: Spontaneous Placenta Status: Delivered SCORES BABY A Heart Rate 1 min: >100 bpm Resp Effort 1 min: Good Cry Reflex Irritability 1 min: Cough or Sneeze or Pulls Away Muscle Tone 1 min: Active Motion Color 1 min: Blue/Pale Resuscitation Effort 1 min: Tactile Stimulation SCORE 1 MIN: 8 Heart Rate 5 min: >100 bpm Resp Effort 5 min: Good Cry Reflex Irritability 5 min: Cough or Sneeze or Pulls Away Muscle Tone 5 min: Active Motion Color 5 min: Body [place], Extremities Blue Resuscitation Effort 5 min: Tactile Stimulation SCORE 5 MIN: 9 INFORMATION BABY A Gestational Age at Delivery: 38.5 Gestational Status: Early Term- 37- 38.6 Weeks Outcome : Liveborn Infant Condition : Stable Infant Sex: Male IDENTIFICATION BABY A Infant Verification Date/Time: 12/03/2018 02:40 ID Band Number: [id number] Mother's Name Verified: Yes Infant RN Verifying : squinn Additional Verifying Personnel: jacilek RN WEIGHT/LENGTH BABY A Birthweight (gm): 3000 Infant Weight (lb): 6 Weight (oz): 10 Infant Length (in): 19.50 Length (cm): 49.53 CORD INFORMATION BABY A No. Cord Vessels: 3 Nuchal Cord : N/A Cord Blood Taken: Yes-For Eval (Mom's Blood Type - or O+) Infant Suction: None ASSESSMENT BABY A Infant Complications: Multiple Variable Decels; Meconium Physical Findings at Delivery: Within Normal Limits Respirations: Appears Normal Skin to Skin: Yes Skin to Skin Time (min): 40 Licensing Specialist/ALS Called : No Care By: Jamir Alford RN Transferred To: Remains with Mother BABY B INFORMATION : N/A SIGNATURES Signature: with User ID: [email or web address]
[2018-12-03] MEDS ORDERED: ACETAMINOPHEN WITH CODEINE #3 TABLET ONE (05:16)
[2018-12-03] MEDS ORDERED: IBUPROFEN 800 MG TABLET ONE ×3 (06:21→22:18)
[2018-12-03] MEDS ORDERED: OXYTOCIN/NORMAL SALINE 20 UNIT/1,000 ML RTUINJ IV PRN (07:18)
[2018-12-03] MEDS ORDERED: PROMETHAZINE HCL 25 MG SUPP.RECT PR PRN (07:18)
[2018-12-03] MEDS ORDERED: PROMETHAZINE HCL 25 MG TABLET PO PRN (07:18)
[2018-12-03] MEDS ORDERED: ACETAMINOPHEN WITH CODEINE #3 TABLET PO PRN ×2 (07:18)
[2018-12-03] MEDS ORDERED: BENZOCAINE/MENTHOL AEROSOL SPRAY 56 ML TOP PRN (07:18)
[2018-12-03] MEDS ORDERED: MAGNESIUM HYDROXIDE SUSP 30 ML UDCUP PO PRN (07:18)
[2018-12-03] MEDS ORDERED: GLYCERIN/WITCH HAZEL LEAF 1 EACH MED..WIPE TP PRN (07:18)
[2018-12-03] MEDS ORDERED: DIBUCAINE 1% OINTMENT 56 GM TP PRN (07:18)
[2018-12-03] MEDS ORDERED: NA PHOS,M-B/NA PHOS,DI-BA (ADULT) 133 ML ENEMA PR PRN (07:18)
[2018-12-03] MEDS ORDERED: DIPH/PERTUSS(ACELL)/TETANUS VAC/PF 0.5 ML SYR (>=10YO) IM PRN (07:18)
[2018-12-03] MEDS ORDERED: MEASLES,MUMPS&RUBELLA VACC/PF 0.5 ML VIAL SUBCUT PRN (07:18)
[2018-12-03] MEDS ORDERED: ZOLPIDEM TARTRATE 5 MG TABLET PO PRN (07:18)
[2018-12-03] MEDS ORDERED: DIPHENHYDRAMINE HCL 25 MG CAPSULE PO PRN (07:18)
[2018-12-03] MEDS ORDERED: PROMETHAZINE HCL INJ 25 MG/1 ML VIAL IV PRN (07:18)
[2018-12-03] MEDS ORDERED: PSEUDOEPHEDRINE HCL 30 MG TABLET PO PRN (07:18)
[2018-12-03] MEDS ORDERED: SENNOSIDES/DOCUSATE 8.6-50 MG 1 EACH TABLET ONE (09:30)
[2018-12-03] MEDS ORDERED: FERROUS SULFATE 325 MG TABLET PO ONE ×2 (09:30→17:52)
[2018-12-03] MEDS ORDERED: PRENATAL VITAMIN W DHA CAPSULE PO ONE (09:30)
[2018-12-03] MEDS ORDERED: FAMOTIDINE 20 MG TABLET ONE (09:30)
[2018-12-03] MEDS ORDERED: DOCUSATE SODIUM 100 MG CAPSULE ONE ×3 (09:30→17:52)
[2018-12-03] MEDS: PRENATAL VITAMIN W DHA CAPSULE PO SCH (10:27)
[2018-12-03] MEDS: SENNOSIDES/DOCUSATE 8.6-50 MG 1 EACH TABLET PO SCH (10:27)
[2018-12-03] MEDS: FAMOTIDINE 20 MG TABLET PO SCH (10:27)
[2018-12-03] MEDS: DOCUSATE SODIUM 100 MG CAPSULE PO SCH ×2 (10:27→17:56)
[2018-12-03] MEDS: FERROUS SULFATE 325 MG TABLET PO SCH ×2 (10:27→17:56)
[2018-12-03] MEDS: IBUPROFEN 800 MG TABLET PO SCH ×2 (13:51→22:20)
[2018-12-03] MEDS ORDERED: NICOTINE 14 MG/24 HR PATCH.TD24 TD ONE (16:30)
[2018-12-03] MEDS ORDERED: ACETAMINOPHEN 325 MG TABLET ONE (17:58)
[2018-12-03] MEDS: ACETAMINOPHEN 325 MG TABLET PO PRN (17:59)
[2018-12-04] MEDS ORDERED: IBUPROFEN 800 MG TABLET ONE (05:35)
[2018-12-04] MEDS: IBUPROFEN 800 MG TABLET PO SCH ×3 (05:36→21:52)
[2018-12-04 05:37] LABS: HEPATITIS C VIRUS AB <0.1 s/co ratio (0.0-0.9)
[2018-12-04 06:42] LABS: HEMATOCRIT 31.9 % (36.0-47.0); HEMOGLOBIN 10.7 g/dL (12.0-15.5); MEAN CORPUSCULAR HGB CONC 33.5 g/dL (32.0-36.0); MEAN CORPUSCULAR VOLUME 87 fl (80-97); PLATELET COUNT 262 10^3/uL (150-450); RED BLOOD COUNT 3.68 10^6/uL (3.72-5.28); RED CELL DISTRIBUTION WIDTH 14.1 % (11.5-14.0); WHITE BLOOD COUNT 12.2 10^3/uL (4.0-10.5)
[2018-12-04 07:02] LABS: HEPATITS B SURFACE ANTIGEN Negative (Negative)
[2018-12-04] MEDS: FAMOTIDINE 20 MG TABLET PO SCH ×3 (07:23→21:55)
[2018-12-04] MEDS: PENICILLIN G POTASSIUM 2,500,000 UNIT in DEXTROSE 5%-WATER 50 ML IV SCH ×3 (07:24→07:29)
[2018-12-04] MEDS: PRENATAL VITAMIN W DHA CAPSULE PO SCH (11:03)
[2018-12-04] MEDS: FERROUS SULFATE 325 MG TABLET PO SCH ×2 (11:03→18:04)
[2018-12-04] MEDS: SENNOSIDES/DOCUSATE 8.6-50 MG 1 EACH TABLET PO SCH (11:03)
[2018-12-04] MEDS: DOCUSATE SODIUM 100 MG CAPSULE PO SCH ×2 (11:04→18:05)
[2018-12-04] MEDS: ACETAMINOPHEN 325 MG TABLET PO PRN ×2 (12:20→18:05)
--- NOTE | 2018-12-04 12:49 | PDOC PROGRESS REPORT ---
Subjective-OB Progress Note for:: 12/04/18 Subjective: Pt resting, she reports light bleeding, reg diet and voiding without difficulty. No concerns. Physical Exam (OB) Vital Signs: Temp Pulse Resp BP Pulse Ox 98.2 F 61 18 128/73 H 99 12/03/18 06:05 12/03/18 06:05 12/03/18 06:05 12/03/18 06:05 12/03/18 06:05 Intake & Output 12/03/18 12/04/18 12/05/18 06:59 06:59 06:59 Intake Total 1000 Balance 1000 Weight 89.5 kg - Lochia Lochia Amount: Scant < 10 ml Lochia Color: Rubra/Red - Abdomen Description: Soft Hernia Present: No Fundal Description: Firm, Midline Fundal Height: u/u - u/2 Objective-Diagnostic Laboratory: 12/04/18 06:26 12/04/18 06:26 WBC 12.2 H RBC 3.68 L Hgb 10.7 L Hct 31.9 L MCV 87 MCH 29.0 MCHC 33.5 RDW 14.1 H Plt Count 262 Assessment and Plan(PN) - Assessment and Plan (1) Active labor at term Is this a current diagnosis for this admission?: Yes (2) Cervical incompetence affecting management of in second trimester, antepartum Is this a current diagnosis for this admission?: Yes (3) History of cerclage, currently Is this a current diagnosis for this admission?: Yes (4) Prior with demise and current in third trimester Is this a current diagnosis for this admission?: Yes (5) Smoker Is this a current diagnosis for this admission?: Yes (6) HSV (herpes simplex virus) infection Is this a current diagnosis for this admission?: Yes - Time Spent with Patient Time with patient: Less than 15 minutes Smoking Education Provided: Over 3 minutes - Disposition Anticipated Discharge: Home Within: within 24 hours
[2018-12-05] MEDS: ACETAMINOPHEN 325 MG TABLET PO PRN ×2 (02:29→13:22)
[2018-12-05] MEDS: IBUPROFEN 800 MG TABLET PO SCH ×2 (06:04→13:27)
[2018-12-05] MEDS: FAMOTIDINE 20 MG TABLET PO SCH (10:41)
[2018-12-05] MEDS: PRENATAL VITAMIN W DHA CAPSULE PO SCH (10:41)
[2018-12-05] MEDS: DOCUSATE SODIUM 100 MG CAPSULE PO SCH (10:41)
[2018-12-05] MEDS: SENNOSIDES/DOCUSATE 8.6-50 MG 1 EACH TABLET PO SCH (10:41)
[2018-12-05] MEDS: FERROUS SULFATE 325 MG TABLET PO SCH (10:41)
[2018-12-05 10:47] VITALS: BP 125/60
--- NOTE | 2018-12-05 11:42 | PDOC DISCHARGE SUMMARY ---
Final Diagnosis Discharge Date: 12/04/18 - Final Diagnosis (1) Active labor at term Is this a current diagnosis for this admission?: Yes (2) Cervical incompetence affecting management of in second trimester, antepartum Is this a current diagnosis for this admission?: Yes (3) History of cerclage, currently Is this a current diagnosis for this admission?: Yes (4) Prior with demise and current in third trimester Is this a current diagnosis for this admission?: Yes (5) Smoker Is this a current diagnosis for this admission?: Yes (6) HSV (herpes simplex virus) infection Is this a current diagnosis for this admission?: Yes Discharge Data - Discharge Medication Home Medications: Vit/Dha [ Multi + Dha Capsule] 1 cap PO DAILY capsule 04/10/17 Reason(s) for Admission: Onset of Labor Intrapartum Procedure(s): Spontaneous Vaginal Delivery - Diagnosis Test Laboratory: Temp Pulse Resp BP Pulse Ox 98.2 F 61 18 128/73 H 99 12/03/18 06:05 12/03/18 06:05 12/03/18 06:05 12/03/18 06:05 12/03/18 06:05 12/02/18 12/02/18 12/04/18 22:00 22:52 06:26 RBC 3.92 3.68 L Hgb 11.3 L 10.7 L Hct 33.6 L 31.9 L Urine Opiates Screen NEGATIVE - Discharge information/Instructions Discharge Activity: Balance Activity w/Rest, Pelvic Rest Discharge Diet: Regular Disposition: HOME, SELF-CARE Follow up with: [facility] in: 4, Weeks
== END 2018-12-05 15:20 | disposition home or self-care (01) | DRG 807 ==
LOC: LC 22:04 → LR 22:41 → 2S 12-04 05:56
PROVIDERS: ADMIT Student in an Organized Health Care Education/Training Program; ATTEND Student in an Organized Health Care Education/Training Program
PROC: 10E0XZZ Delivery of Products of Conception, External Approach (ICD-10-PCS; principal; 2018-12-03)
PROC: 10907ZC Drainage of Amniotic Fluid, Therapeutic from Products of Conception, Via Natural or Artificial Opening (ICD-10-PCS; 2018-12-03)
PROC: 4A1HX4Z Monitoring of Products of Conception, Cardiac Electrical Activity, External Approach (ICD-10-PCS; 2018-12-03)
DX: O34.33 Maternal care for cervical incompetence, third trimester (principal); Z37.0 Single live birth; F17.210 Nicotine dependence, cigarettes, uncomplicated; O99.333 Smoking (tobacco) complicating pregnancy, third trimester; O76 Abnormality in fetal heart rate and rhythm complicating labor and delivery; Z3A.38 38 weeks gestation of pregnancy; O77.0 Labor and delivery complicated by meconium in amniotic fluid
CPT/HCPCS: 36415; 59025; 80307; 81005; 84112; 85025; 85027; 86592; 86695; 86701; 86762; 86787; 86803; 86804; 86850; 86900; 86901; 87077; 87081; 87340; 87491; 87591; J2405; J2540; J2590; J3010; J3490; J7060

== ENCOUNTER 2018-12-20 19:50 | Emergency (ER) | payer MEDICAID ==
--- NOTE | 2018-12-20 20:34 | ER Document Report ---
ED Medical Screen (RME) - General Chief Complaint: Low Back Pain Stated Complaint: LOWER BACK PAIN Time Seen by Provider: 12/20/18 20:29 Mode of Arrival: Wheelchair Information source: Patient Notes: 33-year-old female presents to ED for complaint of pain to the left flank lower back area. She states she does have a history of kidney she states that this is alert in her normal kidney stones. She denies any injuries. She states she is 2 weeks post delivery of her son so she is still bleeding from that. Any nausea vomiting she states she did vomit about 30 minutes before coming to the ED. States she has not eaten or drink most of the day. Denies pain or burning with urination but she feels like she still has to urinate when she finished. She states there is some discomfort with urination but does not hurt. She states she has had an appendectomy and a history of kidney stones. Patient is alert and oriented respirations regular and unlabored speaking in full sentences . I have greeted and performed a rapid initial assessment of this patient. A comprehensive ED assessment and evaluation of the patient, analysis of test results and completion of medical decision making process will be conducted by an additional ED providers. TRAVEL OUTSIDE OF THE [place] IN LAST 30 DAYS: No - Related Data Allergies/Adverse Reactions: No Known Allergies Allergy (Verified 12/20/18 20:28) Past Medical History - Past Medical History Cardiac Medical History: Reports: Hx Atrial Fibrillation Renal/ Medical History: Reports: Hx Kidney Stones. Denies: Hx Peritoneal Dialysis Psychiatric Medical History: Denies: Hx Depression Past Surgical History: Reports: Hx Appendectomy - Immunizations Immunizations up to date: Yes Hx Diphtheria, Pertussis, Tetanus Vaccination: Yes - unk History of Influenza Vaccine for 01/2017 - 06/2017 Season: No Physical Exam - Vital signs Vitals: Temp Pulse Resp BP Pulse Ox 100.7 F H 120 H 20 136/84 H 93 12/20/18 20:06 12/20/18 20:06 12/20/18 20:06 12/20/18 20:06 12/20/18 20:06 Course - Vital Signs Vital signs: Temp Pulse Resp BP Pulse Ox 100.7 F H 120 H 20 136/84 H 93 12/20/18 20:06 12/20/18 20:06 12/20/18 20:06 12/20/18 20:06 12/20/18 20:06
[2018-12-20] MEDS ORDERED: NORMAL SALINE 1000 ML 1,000 ML IV ONE (20:36)
[2018-12-20 21:20] LABS: ABSOLUTE BASOPHILS # (AUTO) 0.2 10^3/uL (0.0-0.2); ABSOLUTE EOSINOPHILS # (AUTO) 0.5 10^3/uL (0.0-0.6); ABSOLUTE LYMPHOCYTES (AUTO) 1.7 10^3/uL (0.5-4.7); ABSOLUTE MONOCYTES (AUTO) 1.4 10^3/uL (0.1-1.4); ABSOLUTE NEUT (AUTO) 11.8 10^3/uL (1.7-8.2); BASOPHILS % (AUTO) 1.1 % (0-2); EOSINOPHILS % (AUTO) 3.1 % (0-6); HEMATOCRIT 40.9 % (36.0-47.0); HEMOGLOBIN 13.6 g/dL (12.0-15.5); LYMPHOCYTES % (AUTO) 10.8 % (13-45); MEAN CORPUSCULAR HEMOGLOBIN 28.5 pg (27.0-33.4); MEAN CORPUSCULAR HGB CONC 33.2 g/dL (32.0-36.0); MEAN CORPUSCULAR VOLUME 86 fl (80-97); MONOCYTES % (AUTO) 8.9 % (3-13); PLATELET COUNT 304 10^3/uL (150-450); RED BLOOD COUNT 4.77 10^6/uL (3.72-5.28); RED CELL DISTRIBUTION WIDTH 13.9 % (11.5-14.0); SEGMENTED NEUTROPHILS % (AUTO) 76.1 % (42-78); TOTAL CELLS COUNTED % (AUTO) 100 %; WHITE BLOOD COUNT 15.5 10^3/uL (4.0-10.5)
[2018-12-20 21:50] LABS: ALBUMIN 4.1 g/dL (3.5-5.0); ALKALINE PHOSPHATASE 116 U/L (38-126); ANION GAP 11 (5-19); ASPARTATE AMINO TRANSFERASE 29 U/L (14-36); BILIRUBIN,DIRECT 0.3 mg/dL (0.0-0.4); BILIRUBIN,TOTAL 0.4 mg/dL (0.2-1.3); BLOOD UREA NITROGEN 9 mg/dL (7-20); CALCIUM 10.1 mg/dL (8.4-10.2); CARBON DIOXIDE 26 mmol/L (22-30); CHLORIDE 105 mmol/L (98-107); GLUCOSE 97 mg/dL (75-110); POTASSIUM 3.5 mmol/L (3.6-5.0); TOTAL PROTEIN 7.6 g/dL (6.3-8.2)
[2018-12-20 22:35] LABS: INTERNATIONAL RATION (INR) 1.06; PROTHROMBIN TIME 13.8 SEC (11.4-15.4)
--- NOTE | 2018-12-20 22:42 | RADIOLOGY REPORT (SQ) ---
Ultrasound retroperitoneum on 12/20/2018 at 9:16 PM CLINICAL INDICATION: Left-sided back pain COMPARISON: None FINDINGS: Multiple sonographic images are obtained throughout the kidneys and bladder, both transverse and sagittal images are obtained. Visualized aorta is unremarkable. Right kidney measures approximately 11.1 cm in greatest [id number] length. Bladder volume measures 203 mL. No bladder wall thickening is noted. Small amount of floating debris is noted in the bladder raising a question of cystitis, recommend correlation with urinalysis. Bilateral ureteral jets are visualized. Left kidney measures approximately 12.9 cm in greatest [id number] length. There is very mild left hydronephrosis. No right hydronephrosis is noted. Kidneys otherwise appear normal in size and morphology. IMPRESSION: 1. Mild left hydronephrosis of unknown definite etiology. 2. Small amount of floating debris in the bladder raising a question of infection, recommend correlation with urinalysis.
[2018-12-20 22:56] LABS: APPEARANCE,URINE CLOUDY; BILIRUBIN,URINE NEGATIVE (NEGATIVE); COLOR,URINE YELLOW; GLUCOSE, URINE NEGATIVE (NEGATIVE); KETONES,URINE NEGATIVE (NEGATIVE); LEUKOCYTE ESTERASE,URINE LARGE (NEGATIVE); NITRITE,URINE POSITIVE (NEGATIVE); PROTEIN,URINE 100 mg/dL (NEGATIVE); URINE SPECIFIC GRAVITY 1.008; UROBILINOGEN,URINE NEGATIVE mg/dL (<2.0)
[2018-12-20] MEDS ORDERED: CEFEPIME 2 GM/D5W RTU 2 GM/50 ML RTUPB IV ONE (23:04)
[2018-12-20 23:06] LABS: VENOUS BLOOD BASE EXCESS 1.2 mmol/L; VENOUS BLOOD HCO3 27.3 mmol/L (20-32); VENOUS BLOOD PCO2 48.5 mmHg (35-63); VENOUS BLOOD PH 7.37 (7.30-7.42)
[2018-12-20] MEDS ORDERED: FENTANYL CITRATE INJ/PF 100 MCG/2 ML AMPUL IV ONE (23:15)
[2018-12-20] MEDS ORDERED: LEVOFLOXACIN 750 MG/D5W RTU 750 MG/150 ML RTUPB IV ONE (23:47)
--- NOTE | 2018-12-20 23:55 | RADIOLOGY REPORT (SQ) ---
EXAM DESCRIPTION: CT ABDOMEN PELVIS WITHOUT IV CONTRAST COMPLETED DATE/TME: 12/20/2018 23:03 CLINICAL HISTORY: 33 years, Female, flank pain, evaluate for stone COMPARISON: 09/06/2015 CT TECHNIQUE: 305 Images stored on PACS. All CT scanners at this facility use dose modulation, iterative reconstruction, and/or weight based dosing when appropriate to reduce radiation dose to as low as reasonably achievable (ALARA). [facility]: Dose Right [facility]: CareDose [facility]: Dose Right [facility]: Teradose 4D [facility]: Smart Technologies LIMITATIONS: None. FINDINGS: Lung bases are unremarkable. Osseous structures are grossly intact. The liver, spleen, adrenal glands, pancreas are unremarkable. Gallbladder is present. Hyperdense appearance with calcifications associated with the medullary pyramids bilaterally consistent with medullary nephrocalcinosis. Mild left hydronephrosis secondary to an obstructing 4.3 mm proximal left ureteral calculus. No gross evidence for bowel obstruction. No free air or free fluid. Appendix not well seen. No pericecal inflammation IMPRESSION: Mild left hydronephrosis secondary to a 4.3 mm proximal left ureteral calculus. Findings suggestive of medullary nephrocalcinosis as above TECHNICAL DOCUMENTATION: Quality ID # [id number]: Final reports with documentation of one or more dose reduction techniques (e.g., Automated exposure control, adjustment of the mA and/or kV according to patient size, use of iterative reconstruction technique) copyright 2011 [employer]- All Rights Reserved
[2018-12-21] MEDS ORDERED: NORMAL SALINE 1000 ML 1,000 ML IV ONE ×2 (00:06→03:43)
[2018-12-21] MEDS ORDERED: DIAZEPAM INJ 10 MG/2 ML DISP.SYRIN IV ONE (00:26)
[2018-12-21] MEDS ORDERED: ACETAMINOPHEN 325 MG TABLET PO ONE (01:06)
[2018-12-21] MEDS ORDERED: FENTANYL CITRATE INJ/PF 100 MCG/2 ML AMPUL IV ONE (03:48)
[2018-12-21 03:53] VITALS: BP 106/69
--- NOTE | 2018-12-21 05:50 | ER Document Report ---
Entered by DIVINA SANABRIA SCRIBE 12/20/18 [id number] Acting as scribe for:RACHELLE PARK DO ED GI/ - General Chief Complaint: Low Back Pain Stated Complaint: LOWER BACK PAIN Time Seen by Provider: 12/20/18 20:29 Mode of Arrival: Wheelchair Information source: Patient Notes: Patient is a 33-year-old female who presents to the emergency department today with complaints of fevers, chills, and left-sided flank pain that radiates around to her abdomen since this morning. Patient states she has a kidney stone and her symptoms today feel similar to her previous kidney stones. Patient describes her pain as "feeling like contractions". Patient denies any urinary symptoms. Of note, patient just gave on December 03 vaginally without complications. TRAVEL OUTSIDE OF THE [place] IN LAST 30 DAYS: No - Related Data Allergies/Adverse Reactions: No Known Allergies Allergy (Verified 12/20/18 20:28) Past Medical History - General Information source: Patient - Social History Smoking Status: Current Every Day Smoker Cigarette use (# per day): Yes Frequency of alcohol use: Rare Drug Abuse: None Lives with: Family Family History: DM Patient has suicidal ideation: No Patient has homicidal ideation: No - Past Medical History Cardiac Medical History: Reports: Hx Atrial Fibrillation Renal/ Medical History: Reports: Hx Kidney Stones Past Surgical History: Reports: Hx Appendectomy - Immunizations Immunizations up to date: Yes Hx Diphtheria, Pertussis, Tetanus Vaccination: Yes - unk Review of Systems - Review of Systems Constitutional: See HPI, Chills, Fever EENT: No symptoms reported Cardiovascular: No symptoms reported Respiratory: No symptoms reported Gastrointestinal: See HPI, Abdominal pain Genitourinary: See HPI, Flank pain - left. denies: Dysuria, Frequency, Urgency Female Genitourinary: No symptoms reported Musculoskeletal: No symptoms reported Skin: No symptoms reported Hematologic/Lymphatic: No symptoms reported Neurological/Psychological: No symptoms reported -: Yes All other systems reviewed and negative Physical Exam - Vital signs Vitals: Temp Pulse Resp BP Pulse Ox 100.7 F H 120 H 20 136/84 H 93 12/20/18 20:06 12/20/18 20:06 12/20/18 20:06 12/20/18 20:06 12/20/18 20:06 Interpretation: Tachycardic, Tachypneic, Febrile - General General appearance: Alert In distress: Moderate - HEENT Head: Normocephalic, Atraumatic Sinus: Normal Mucous membranes: Dry Pharynx: Normal - Respiratory Respiratory status: No respiratory distress Chest status: Nontender Breath sounds: Normal Chest palpation: Normal - Cardiovascular Rhythm: Regular, Tachycardia Heart sounds: Normal auscultation Murmur: No - Abdominal Inspection: Normal Bowel sounds: Normal Tenderness: Nontender - Back Back: CVA tenderness - L - Extremities General upper extremity: Normal inspection, Nontender, Normal color, Normal ROM, Normal temperature General lower extremity: Normal inspection, Nontender, Normal color, Normal ROM, Normal temperature, Normal weight bearing. No: Rosas's sign - Neurological Neuro grossly intact: Yes Cognition: Normal Orientation: AAOx4 Lyubov Coma Scale Eye Opening: Spontaneous Lyubov Coma Scale Verbal: Oriented Lyubov Coma Scale Motor: Obeys Commands Lyubov Coma Scale Total: 15 Speech: Normal Motor strength normal: LUE, RUE, LLE, RLE Sensory: Normal - Psychological Associated symptoms: Normal affect, Normal mood - Skin Skin Temperature: Hot Skin Moisture: Diaphoretic Skin Color: Flushed Course - Re-evaluation Re-evalutation: 12/20/18 23:43 Call placed to [facility] for potential transfer. No beds, will call [facility]. 12/20/18 23:45 [facility] called. We will get a hold of urology and call me back. They are low on beds and may not have the bed type available that this patient needs. 12/20/18 23:51 Call placed to [facility]. They will get a hold of urology and call me back. They do have beds available. 12/21/18 00:[address] Max from Urology. Will need ureteral stent and admission to [facility]. 12/21/18 00:[address] Byers, urology at [facility]. Will accept to [facility]. 12/21/18 01:07 Temp now 103. Tylenol ordered. 12/21/18 06:00 Patient is a 33-year-old female who comes in complaining of fever, flank pain, and intermittent abdominal pain. Patient recently delivered via spontaneous vaginal delivery 2 weeks ago. She does not appear well today. She is tachycardic with dry mucous membranes and febrile. Urine consistent with nitrate positive urinary tract infection. CT is showing a 4.3 mm proximal ureteral stone on the left. Patient was discussed with urology at both [place] and [facility]. She has been accepted for transfer. Unfortunately, there is no transport available. Patient is still waiting in the emergency department. Cultures have been sent and she has been given cefepime. Heart rate is improved. Blood pressure stable. Fevers down. Patient has been getting fentanyl for pain control. Hopefully transport will be available this morning. Patient and have been counseled and are agreeable to this plan. Stable at the time of transfer. - Vital Signs Vital signs: Temp Pulse Resp BP Pulse Ox 100.3 F 112 H 20 106/69 95 12/21/18 03:53 12/20/18 20:34 12/21/18 03:52 12/21/18 03:52 12/21/18 03:52 - Laboratory Result Diagrams: 12/20/18 21:03 12/20/18 21:03 Laboratory results interpreted by me: 12/20/18 12/20/18 12/20/18 21:03 21:03 22:05 WBC 15.5 H Lymph % (Auto) 10.8 L Absolute Neuts (auto) 11.8 H Potassium 3.5 L Urine Protein 100 H Urine Blood LARGE H Urine Nitrite POSITIVE H Ur Leukocyte Esterase LARGE H Critical Care Note - Critical Care Note Total time excluding time spent on procedures (mins): 90 - Evaluation and management of septic ureteral stone, multiple re-evaluations, coordination of transfer, counseling of patient and family Discharge - Discharge Clinical Impression: Ureteral calculus, left UTI (urinary tract infection) Qualifiers: Urinary tract infection type: site unspecified Hematuria presence: with hematuria Qualified Code(s): N39.0 - Urinary tract infection, site not specified; R31.9 - Hematuria, unspecified Sepsis Qualifiers: Sepsis type: sepsis due to unspecified organism Sepsis acute organ dysfunction status: without acute organ dysfunction Qualified Code(s): A41.9 - Sepsis, unspecified organism Condition: Stable Disposition: [facility] I personally performed the services described in the documentation, reviewed and edited the documentation which was dictated to the scribe in my presence, and it accurately records my words and actions.
--- NOTE | 2018-12-21 07:54 | EKG REPORT ---
SEVERITY:- OTHERWISE NORMAL ECG - SINUS RHYTHM BORDERLINE RIGHT AXIS DEVIATION : Confirmed by: Jessie Chu 21-Dec-2018 07:53:58
== END 2018-12-21 08:41 | disposition short-term general hospital (02) ==
LOC: ER 19:50
DX: M54.5 Low back pain (principal); A41.9 Sepsis, unspecified organism; N20.1 Calculus of ureter; N39.0 Urinary tract infection, site not specified; R31.9 Hematuria, unspecified; R50.9 Fever, unspecified; R10.9 Unspecified abdominal pain; F17.210 Nicotine dependence, cigarettes, uncomplicated; I48.91 Unspecified atrial fibrillation
CPT/HCPCS: 93005; 99291; 99292; 96361; 96375; 96365; 96366; 96367; 36415; 87040; 87086; 82962; 85025; 85610; 87077; 87088; 80053; 81001; 87186; 82803; 83605; 76770; 74176; 93010; J3490; J3360; J3010 ×2; J7030 ×2; J1956; J0692

== ENCOUNTER → 2020-02-21 | Outpatient (CLI) | payer BC ==
--- NOTE | 2020-02-21 15:38 | RADIOLOGY REPORT (SQ) ---
EXAM DESCRIPTION: U/S OB 14+ TRNABD 1GES W/O DOP IMAGES COMPLETED DATE/TIME: 02/21/2020 2:49 pm REASON FOR STUDY: Z34.82 ENCOUNTER FOR SUPRVSN OF NORMAL , SECOND TRIMESTER Z34.82 ENCOUNT ER FOR SUPRVSN OF NORMAL , SECOND TRI COMPARISON: None. TECHNIQUE: Static and Dynamic grayscale imaging performed of gravid uterus using transabdominal appr oach. Additional selected color Doppler and spectral images recorded. All stored on PACS. LIMITATIONS: None. FINDINGS: FETUSES SEEN:1 EGA: 21 weeks 4 days Calculated using BPD,FL,HC,AC documented on images. No discrepancy with clinica l dates. UMAIR: 06/29/2020 EFW: 465 grams PERCENTILE: 21% SHIRA: LVP- 2.5 x 3.6 cm PLACENTA: Anterior. Heterogenous area posterior to the placenta, probably nonspecific finding. PRESENTATION: Cephalic. ANATOMY: HEART RATE: 153 beats per minute. FOUR CHAMBER HEART: Visualized. THREE VESSEL CORD: Yes. CORD INSERTION: Visualized. KIDNEYS AND BLADDER: Visualized. Appear normal. STOMACH: Visualized. Appears normal. SPINE: Suboptimal due to lie. BRAIN AND LATERAL VENTRICLES: Visualized. Appear normal. OTHER: No other significant finding. MATERNAL ADNEXA: The right ovary measures 2.2 x 1.8 x 1.8 cm. A 2.1 x 1.5 x 1.5 cm right paraovaria n cyst. The left ovary measures 2.6 x 1.6 x 2.8 cm. Normal bilateral vascular blood flow. CERVICAL LENGTH: 3.6 cm. Closed. OTHER: No other significant finding. IMPRESSION: 1. LIVING INTRAUTERINE . ESTIMATED GESTATIONAL AGE: 21 weeks 4 days NO VISUALIZED ANOMALIES. SEE ABOVE. Trimester of : Second trimester - 13 weeks 1 day to 27 weeks 6 days. TECHNICAL DOCUMENTATION: JOB ID: [id number] [employer]- All Rights Reserved Reading location - IP/workstation name: [email or web address]
== END ==
LOC: RAD 14:14
PROVIDERS: ATTEND Nurse Practitioner Family
DX: Z34.82 Encounter for supervision of other normal pregnancy, second trimester (principal); Z3A.21 21 weeks gestation of pregnancy
CPT/HCPCS: 76805